=== PATIENT | male | born 1975 | race Caucasian/White ===

== ENCOUNTER 2020-04-11 12:37 | Inpatient (IN) | payer OTHER, BC ==
[2020-04-11 13:27] VITALS: BMI 27.6
[2020-04-11] MEDS ORDERED: LACTATED RINGERS SOLUTION 1000 ML INFUS.BAG IV ONE ×3 (13:31→15:15)
[2020-04-11] MEDS ORDERED: ACETAMINOPHEN 1000 MG/100 ML VIAL (NON FORMULARY) IVPB ONE ×2 (13:31→19:58)
[2020-04-11] MEDS ORDERED: ACETAMINOPHEN INJECTION 100 ML IVPB ONE ×2 (13:33→19:58)
[2020-04-11 13:37] LABS: BASO % 0.1 % (0-2.0); EOS % 0.1 % (0-4.5); HEMATOCRIT 42.8 % (35.4-49); HEMOGLOBIN 14.5 GM/dL (11.7-16.9); MCH 30.2 pg (25.7-33.7); MCHC 33.8 g/dl (32.0-35.9); MEAN CELL VOLUME 89.4 fl (80-96); MEAN PLT VOLUME 9.5 fl (7.5-11.1); MONO % 6.5 % (3.8-10.2); NEUT % 85.3 % (42.8-82.8); PLATELET COUNT 168 K/MM3 (134-434); RBC 4.78 M/mm3 (4.00-5.60); RDW 13.2 % (11.9-15.9)
[2020-04-11] MEDS ORDERED: LIDOCAINE 5% TOPICAL PATCH TP ONE (13:41)
[2020-04-11] MEDS ORDERED: LIDOCAINE 5% TOPICAL PATCH ONE (13:42)
[2020-04-11 13:44] LABS: VENOUS BASE EXCESS -1.8 mmol/L (-2-2); VENOUS O2 SATURATION 65.6 % (70-80); VENOUS PCO2 46.2 mmHg (38-52); VENOUS PH 7.339 (7.310-7.410)
[2020-04-11 13:51] LABS: INR 1.12 (0.83-1.09); PROTHROMBIN TIME (PATIENT) 13.7 SEC (9.7-13.0)
[2020-04-11 13:54] LABS: ACTIVATED PTT 29.7 SECONDS (25.2-36.5)
[2020-04-11 14:09] LABS: POTASSIUM 3.9 mmol/L (3.5-5.1)
[2020-04-11 14:11] LABS: ALBUMIN 3.9 g/dl (3.4-5.0); BLOOD UREA NITROGEN 17.1 mg/dL (7-18)
[2020-04-11 14:14] LABS: CREATININE 1.4 mg/dL (0.55-1.3)
[2020-04-11 14:16] LABS: BILIRUBIN,TOTAL 0.3 mg/dL (0.2-1); TOT PROT 7.1 g/dl (6.4-8.2)
[2020-04-11 16:17] LABS: PH,URINE 5.5 (5.0-8.0); URINE APPEARANCE CLEAR; URINE BILIRUBIN NEGATIVE (NEGATIVE); URINE COLOR DK YELLOW; URINE GLUCOSE (UA) TRACE (NEGATIVE); URINE KETONE TRACE (NEGATIVE); URINE LEUK ESTERASE NEGATIVE (NEGATIVE); URINE NITRITE NEGATIVE (NEGATIVE); URINE PROTEIN TRACE (NEGATIVE); URINE UROBILINOGEN 0.2 mg/dL (0.2-1.0)
[2020-04-11] MEDS ORDERED: LIDOCAINE PATCH REMOVAL MC SCH (22:00)
[2020-04-12] MEDS ORDERED: ACETAMINOPHEN 325 MG TABLET (FP) PO ONE (06:18)
[2020-04-12] MEDS ORDERED: ACETAMINOPHEN 325 MG TABLET (FP) ONE (06:19)
[2020-04-12 06:41] LABS: BASO % 0.2 % (0-2.0); EOS % 0.4 % (0-4.5); HEMATOCRIT 39.8 % (35.4-49); HEMOGLOBIN 13.4 GM/dL (11.7-16.9); LYMPH % 15.3 % (8-40); MCHC 33.7 g/dl (32.0-35.9); MEAN CELL VOLUME 88.9 fl (80-96); MEAN PLT VOLUME 9.7 fl (7.5-11.1); MONO % 8.8 % (3.8-10.2); NEUT % 75.3 % (42.8-82.8); PLATELET COUNT 146 K/MM3 (134-434); RBC 4.48 M/mm3 (4.00-5.60); WHITE BLOOD COUNT 6.1 K/mm3 (4.0-10.0)
[2020-04-12 06:58] LABS: CHLORIDE 106 mmol/L (98-107); POTASSIUM 3.9 mmol/L (3.5-5.1); SODIUM 140 mmol/L (136-145)
[2020-04-12 07:00] LABS: CALCIUM 7.9 mg/dL (8.5-10.1); GLUCOSE,RANDOM 103 mg/dL (74-106)
[2020-04-12 07:01] LABS: ALBUMIN 3.3 g/dl (3.4-5.0); ANION GAP 6 MMOL/L (8-16); BLOOD UREA NITROGEN 12.4 mg/dL (7-18); CO2 27 mmol/L (21-32)
[2020-04-12 07:03] LABS: CREATININE 0.9 mg/dL (0.55-1.3)
[2020-04-12 07:04] LABS: SGOT/AST 17 U/L (15-37); SGPT/ALT 25 U/L (13-61)
[2020-04-12 07:05] LABS: BILIRUBIN,TOTAL 0.3 mg/dL (0.2-1); TOT PROT 6.3 g/dl (6.4-8.2)
[2020-04-12 07:06] LABS: ALK PHOS 61 U/L (45-117)
[2020-04-12] MEDS ORDERED: HEPARIN NA (PORCINE) 5,000 UNITS/ML 1ML VIAL SQ SCH (10:00)
[2020-04-12] MEDS ORDERED: HEPARIN NA (PORCINE) 5,000 UNITS/ML 1ML VIAL ONE (10:39)
[2020-04-12] MEDS ORDERED: ACETAMINOPHEN 1000 MG/100 ML VIAL (NON FORMULARY) IVPB ONE (13:38)
[2020-04-12] MEDS ORDERED: ACETAMINOPHEN INJECTION 100 ML IVPB ONE (13:40)
[2020-04-12] MEDS ORDERED: ACETAMINOPHEN 325 MG TABLET (FP) PO PRN (19:21)
[2020-04-12 19:31] VITALS: BP 141/85; PULSE 110; TEMP 102.4
[2020-04-12] MEDS: AZITHROMYCIN 250 MG TABLET PO ONE ×2 (20:17→20:43)
[2020-04-12] MEDS ORDERED: AZITHROMYCIN 250 MG TABLET ONE (20:29)
== END 2020-04-12 20:18 | disposition home or self-care (01) | DRG 177 ==
LOC: JER 12:37 → JERBED 15:40 → OBSVTOIN 15:40
PROVIDERS: ADMIT Internal Medicine; ATTEND Internal Medicine
DX: U07.1 COVID-19 (principal); J12.89 Other viral pneumonia; E87.2 Acidosis; R55 Syncope and collapse; R50.9 Fever, unspecified
CPT/HCPCS: 36415; 70450-TC; 71045-TC-FY; 71275-TC; 80053; 81003; 82550; 82553; 82728; 82803; 83605; 83615; 84484; 85025; 85610; 85730; 86140; 86850; 86900; 86901; 87040; 87086; 93005; 93010; 93880-TC; 99285-25; C9803; J0131; U0003